=== PATIENT | male | born 1980 | race African-American/Black ===

== ENCOUNTER 2017-07-08 01:25 | Emergency (ER) | payer OTHER ==
[~2017-07-08] VITALS: Ht 162.6 cm; Wt 87.4 kg
[~2017-07-08 01:25] MED LIST: MOBIC15 MG PO
[2017-07-08 04:35] LABS: HEMATOCRIT 40.7 % (38.0-50.0); HEMOGLOBIN 13.9 G/DL (12.5-16.6); MCH 30.6 PG (29.0-34.0); MCHC 34.2 G/DL (30.0-36.0); MCV 89.6 FL (86-99); RBC DIS.WIDTH-CV 12.2 % (11.8-14.6); RBC DIS.WIDTH-SD 40.4 % (39-53); RED BLOOD COUNT 4.54 M/uL (4.00-5.50); WHITE BLOOD COUNT 4.6 K/uL (4.1-10.2)
[2017-07-08 04:43] LABS: ALBUMIN 3.7 g/dL (3.2-4.8); CHLORIDE 106 mEq/L (99-109); POTASSIUM 4.4 mEq/L (3.7-5.4); SODIUM 140 mEq/L (136-147)
[2017-07-08 04:46] LABS: GLUCOSE 102 mg/dL (70-99); TOTAL PROTEIN 7.7 g/dL (6.4-8.3)
[2017-07-08 04:48] LABS: TOTAL BILIRUBIN 0.3 mg/dL (0.0-1.0)
[2017-07-08 04:49] LABS: ALKALINE PHOSPHATASE 51 IU/L (3-129); CREATININE 0.9 mg/dL (0.6-1.3); GFR ESTIMATE (CALCULATED) > 59 mL/min/ (58.99-99999)
[2017-07-08 04:50] LABS: UREA NITROGEN (BUN) 19 mg/dL (9-23)
[2017-07-08 04:51] LABS: AST (GOT) 74 IU/L (2-34)
[2017-07-08 04:52] LABS: ALT (GPT) 118 IU/L (3-49)
[2017-07-08 04:53] LABS: LIPASE 59 U/L (1.0-51.0)
[2017-07-08 04:56] LABS: APPEARANCE SL.HAZY ((CLEAR)); BILIRUBIN NEGATIVE; BLOOD NEGATIVE; COLOR YELLOW ((YELLOW)); GLUCOSE (STRIP) NEGATIVE; KETONES NEGATIVE; LEUKOCYTES NEGATIVE; NITRITE NEGATIVE; PROTEIN (STRIP) NEGATIVE; SPECIFIC GRAVITY 1.035 (1.000-1.030)
[2017-07-08 05:01] LABS: BACTERIA NONE SEEN /HPF; EPITHELIAL CELLS NONE SEEN /HPF; MUCUS 1+ /LPF; RED BLOOD CELLS 0-5 /HPF (0-5); UCUL ADDED? NO; WHITE BLOOD CELLS 0-5 /HPF (0-5)
[2017-07-08] MEDS ORDERED: FLEXERIL10 MG PO (05:15)
[2017-07-08] MEDS ORDERED: ULTRAM50 MG PO (05:15)
[2017-07-08 05:31] LABS: PLAT.SUFFICIENCY DECREASED; PLATELET COUNT 105 K/uL (156-360)
[2017-07-08 05:53] VITALS: BP 142/77
== END 2017-07-08 05:55 | disposition home or self-care (01) ==
LOC: EME 01:25
PROVIDERS: Physician Assistant
DX: R05 Cough (principal); M54.5 Low back pain
CPT/HCPCS: 71020; 72100; 80053; 81003; 83690; 85027; 99281; 99284